=== PATIENT | female | born 1955 | race African-American/Black ===

== ENCOUNTER 2018-05-29 05:17 | Inpatient (IN) ==
[2018-05-22 13:19] LABS: HEMATOCRIT 37.2 % (37.0-47.0); HEMOGLOBIN 12.6 g/dL (12.0-16.0); MCH 30.7 PG (27-31); MCHC 33.9 g/dL (33-37); MCV 90.5 FL (81-99); MPV 12.1 FL (7.4-10.4); RBC 4.11 XMIL (4.2-5.4); RDW 15.8 % (11.5-14.5); WBC 13.63 X1000 (4.8-10.8)
--- NOTE | 2018-05-22 13:43 | EKG Report ---
Test Performed on : 05/22/2018 1:03:47 PM Test Reason : PAT Blood Pressure : / mmHG Vent. Rate : 064 BPM Atrial Rate : 064 BPM P-R Int : 116 ms QRS Dur : 086 ms QT Int : 416 ms P-R-T Axes : 059 042 038 degrees QTc Int : 429 ms Normal sinus rhythm. Nonspecific T wave abnormality Abnormal ECG No previous ECGs available Confirmed by Jamar YOO, Wilner ([id number]) on 05/23/2018 8:42:44 AM
[2018-05-22 13:48] LABS: CALCIUM 9.7 mg/dL (8.8-10.2); CREATININE 1.3 mg/dL (0.5-0.9); POTASSIUM 3.3 mmol/L (3.5-5.1)
[2018-05-29] MEDS ORDERED: LR 1,000 ML ONE ×3 (05:35→13:26)
[2018-05-29] MEDS ORDERED: KEFZOL 2 GM/D5W 2 GM/50 ML IVPB ONE (05:35)
[2018-05-29] MEDS ORDERED: DIPRIVAN 1% ONE (06:24)
[2018-05-29] MEDS ORDERED: SENSORCAINE-MPF 0.5%/EPI 1:200,000 ONE (06:30)
[2018-05-29] MEDS ORDERED: DECADRON ONE (07:14)
[2018-05-29] MEDS ORDERED: ROBINUL ONE ×2 (07:14→12:16)
[2018-05-29] MEDS ORDERED: QUELICIN (DOSE) ONE (07:14)
[2018-05-29] MEDS ORDERED: ZEMURON ONE ×2 (07:14→07:56)
[2018-05-29] MEDS ORDERED: ZOFRAN ONE ×2 (07:14→08:10)
[2018-05-29] MEDS ORDERED: XYLOCAINE-MPF 2% ONE (07:14)
[2018-05-29] MEDS ORDERED: SODIUM CHLORIDE 0.9% 10 ML ONE ×2 (07:14→12:16)
[2018-05-29] MEDS ORDERED: NEO-SYNEPHRINE ONE (07:14)
[2018-05-29] MEDS ORDERED: OFIRMEV 1000 MG/ISOTONIC SOLN 1,000 MG/100 ML BOTTLE ONE (08:10)
[2018-05-29 08:32] LABS: URINE SOURCE CATH
[2018-05-29 08:38] LABS: BILIRUBIN URINE NEGATIVE (NEGATIVE); BLOOD URINE NEGATIVE (NEGATIVE); COLOR YELLOW; GLUCOSE URINE NEGATIVE (NEGATIVE); KETONE URINE NEGATIVE (NEGATIVE); LEUKOCYTES URINE NEGATIVE (NEGATIVE); NITRITE URINE NEGATIVE (NEGATIVE); PH URINE 6.5; PROTEIN URINE 50 mg/dL (NEGATIVE); SP GRAVITY URINE 1.001; TURBIDITY URINE CLEAR (CLEAR); UROBILINOGEN URINE NORMAL (NORMAL)
[2018-05-29 08:39] LABS: UR EPITHELIAL CELLS <10 /HPF (<10); URINE BACTERIA NEGATIVE /HPF; URINE RBC <10 /HPF (<10); URINE WBC <10 /HPF (<10)
[2018-05-29] MEDS ORDERED: EPHEDRINE ONE (12:16)
[2018-05-29] MEDS ORDERED: NEOSTIGMINE ONE (12:17)
[2018-05-29] MEDS ORDERED: FENTANYL ONE (12:42)
[2018-05-29] MEDS ORDERED: NS 1,000 ML ONE (13:10)
[2018-05-29] MEDS ORDERED: PHENERGAN IV PRN (13:30)
[2018-05-29] MEDS ORDERED: SODIUM CHLORIDE 0.9% INJ PRN (13:30)
[2018-05-29] MEDS ORDERED: BENADRYL LIQUID PO PRN (13:30)
[2018-05-29] MEDS ORDERED: LABETALOL IV PRN (13:30)
[2018-05-29] MEDS ORDERED: OXY IR PO PRN (13:30)
[2018-05-29] MEDS: DILAUDID ONE ×2 (13:33→13:40)
[2018-05-29] MEDS ORDERED: KEFZOL 1 GM/D5W 1 GM/50 ML IVPB ONE (13:37)
[2018-05-29] MEDS ORDERED: KEFZOL 1 GM/D5W 1 GM/50 ML IVPB IV SCH (14:00)
[2018-05-29] MEDS ORDERED: OFIRMEV 1000 MG/ISOTONIC SOLN 1,000 MG/100 ML BOTTLE IV PRN (16:00)
[2018-05-29] MEDS: NS 1,000 ML IV SCH (16:11)
[2018-05-29] MEDS: HUMULIN R SUBQ SCH ×3 (16:12→21:43)
[2018-05-29] MEDS: MOTRIN PO SCH (16:17)
--- NOTE | 2018-05-29 19:55 | OPERATIVE NOTE ---
PROCEDURE DATE: 05/29/2018 SURGEON: Yadiel Choudhary MD. COURIER DELIVERY DRIVER SURGEON: Dr. Richards. PREOPERATIVE DIAGNOSIS: Large left renal mass. POSTOPERATIVE DIAGNOSIS: Large left renal mass. PROCEDURE PERFORMED: Laparoscopic robot-assisted attempt at left partial nephrectomy. Conversion to left radical nephrectomy. ANESTHESIA: General endotracheal. FINDINGS: A large left mid kidney to lower pole kidney renal mass (greater than 6 cm in diameter). INDICATION FOR PROCEDURE: This 62-year-old female has a large left renal mass. DESCRIPTION OF PROCEDURE: After informed consent was obtained from the patient and her receiving IV antibiotics, she was taken the main OR and placed in the supine position. General endotracheal anesthesia was achieved. She then had a 16-Somali Garcia catheter placed. Her left side was elevated to about 20 to 30 degrees with bumps. The patient's right leg was flexed to about 45 degrees. Her left leg was maintained straight. There was a pillow placed between both knees. The patient was fixed to the table with safety straps and large silk tape. The table was rotated completely to her left where she became almost horizontal to the floor. It was then rotated all the way to her right such that her left side was all the way up in flank position. The patient was then returned to the almost horizontal position and prepped and draped in the usual sterile fashion for left flank and abdominal surgery. Pneumoperitoneum was achieved by placing the Veress needle through the umbilicus. The camera port was placed about 7 cm above the umbilicus just to the left of midline. The #2 arm was placed just below the ribcage in the midclavicular line. The #1 arm was placed in the midclavicular line just below the umbilicus. The 4th arm was placed just above the left anterior superior iliac spine. The speech language pathology assistant port was placed just below the umbilicus. Before the speech language pathology assistant port could be placed, adhesions had to be taken down with the scissors laparoscopically. After the speech language pathology assistant port was placed the patient was placed with her left side up into the flank position. The robot was docked. The procedure was started by taking down more intraabdominal adhesions. The colon was reflected medially by incising the white line of Toldt. This was taken all the way up across the kidney. The colon's mesentery was very adhered to the spleen and above the spleen to the diaphragm. The colon could never be completely freed from the spleen or the diaphragm. The splenocolic ligament was incised as well as the splenorenal ligament. The colon was never completely mobilized medially off of the spleen or gastric area. After the colon was mobilized medially as far as possible, the lower pole mass was easily seen and the perirenal fat was removed over normal kidney. The lower pole area was dissected down to the psoas muscle and then medially where the gonadal vein was visualized and dissected up to the renal vein. The ureter was visualized and it was lifted up along with the kidney but the gonadal vein was kept medial. With the 4th arm, the lower pole of the kidney was raised and the pedicle was visualized. The patient had significant adhesions secondary to previous surgery and to this large mass that was distorting her anatomy. The renal vein was able to be circled with a vessel loop. However, the renal artery was immediately behind the kidney and it could not have a vessel loop placed around it. After the renal artery was somewhat dissected free such that it appeared a bulldog would be able to be placed, the proposed incision line was made over the kidney. This was seen to be over mcc up the kidney and went into the hilum of the kidney. It was decided that it would be very difficult to save the upper 1/3 of the kidney since we would have to cut into the hilar vessels to safely remove the large mid and lower pole renal mass. It was decided at that time to remove the whole kidney. The artery was dissected up and using the #2 arm, the artery was lifted up and a Hem-o-miguel clip was placed. At placing the clip, the adrenal vein was avulsed and significant bleeding occurred. The adrenal vein was finally controlled and a clip was placed on the vein and across the renal vein. A 2nd clip was placed on the artery and a 2nd clip was placed on the renal vein. A clip was placed distally on the renal vein and incised. Another clip was placed on the artery distally and it was incised. The kidney was bluntly and sharply dissected free of its bed and finally was able to be completely freed and pushed down into the true bony pelvis. The ureter was taken down between clips. The renal pelvis and artery were grasped with grasping forceps so that the kidney could be removed. Floseal was placed over the adrenal gland as well as the vascular pedicle to the left kidney. The robot was then undocked and the patient placed again horizontally. The robot trocars were removed leaving the speech language pathology assistant trocar in place with the grasping forceps through that. An incision was made below the grasping forceps through a previous scar down towards the pubic bone the length about 5 cm. This was taken down through the subcutaneous tissue with the Bovie electrocautery. The fascia at the speech language pathology assistant trocar was incised and the speech language pathology assistant trocar was able to be pulled out of the abdominal cavity and the surgeon's finger placed through that defect and the fascia was incised over the surgeon's finger to the length of the skin incision. The surgeon's hand followed the grasping forceps down to the kidney and the kidney was able to be removed. Upon inspecting the kidney outside the body, fully 2/3 of the kidney body was this large mass. The kidney was sent to Pathology. The abdominal rectus fascia was reapproximated with a running suture of #1 Maxon. The skin was reapproximated with clips. The surgeon's finger was placed through the camera trocar and a defect in the fascia could not be found. The remaining robot trocar incisions were reapproximated with clips. Island dressings were placed. She tolerated the procedure well. The estimated blood loss was 1500 mL. She did receive 2 units of packed red blood cells during the case. Her vital signs remained stable throughout. She was taken to the recovery room, extubated in good condition. The Garcia catheter will be kept overnight. cc: Yadiel Choudhary MD
[2018-05-29] MEDS: OXY IR PO PRN (21:45)
[2018-05-29] MEDS: COLACE PO SCH (21:46)
[2018-05-29] MEDS: PEPCID PO SCH (21:47)
[2018-05-29] MEDS: KEFZOL 1 GM/D5W 1 GM/50 ML IVPB IV SCH (21:47)
[2018-05-30] MEDS: HUMULIN R SUBQ SCH ×4 (02:52→20:42)
[2018-05-30] MEDS: KEFZOL 1 GM/D5W 1 GM/50 ML IVPB IV SCH (06:33)
[2018-05-30 06:51] LABS: HEMOGLOBIN 10.8 g/dL (12.0-16.0); MCH 31.7 PG (27-31); MCHC 33.8 g/dL (33-37); MCV 93.8 FL (81-99); MPV 12.5 FL (7.4-10.4); RBC 3.41 XMIL (4.2-5.4); RDW 15.8 % (11.5-14.5); WBC 15.29 X1000 (4.8-10.8)
[2018-05-30] MEDS ORDERED: PRILOSEC PO SCH (07:00)
[2018-05-30 07:42] LABS: CALCIUM 8.1 mg/dL (8.8-10.2); CREATININE 1.4 mg/dL (0.5-0.9); POTASSIUM 3.5 mmol/L (3.5-5.1)
[2018-05-30] MEDS: ASPIRIN PO SCH (08:45)
[2018-05-30] MEDS: THERA M PLUS PO SCH (08:50)
[2018-05-30] MEDS: MOTRIN PO SCH ×3 (08:50→21:48)
[2018-05-30] MEDS: AMARYL PO SCH (08:50)
[2018-05-30] MEDS: PEPCID PO SCH ×2 (08:50→21:48)
[2018-05-30] MEDS: COLACE PO SCH ×2 (08:50→21:48)
[2018-05-30] MEDS: OXY IR PO PRN (08:51)
[2018-05-30] MEDS: TRICOR PO SCH (08:51)
[2018-05-30] MEDS: PERIDEX MT SCH ×2 (08:52→21:48)
[2018-05-30] MEDS: ONGLYZA PO SCH (11:00)
[2018-05-30] MEDS: NS 1,000 ML IV SCH (11:04)
[2018-05-30] MEDS: PRINZIDE 10/12.5MG PO SCH (11:41)
[2018-05-30] MEDS ORDERED: LIPITOR PO SCH (21:00)
[2018-05-31] MEDS: NS 1,000 ML IV SCH (00:44)
[2018-05-31] MEDS: HUMULIN R SUBQ SCH (02:30)
[2018-05-31] MEDS: ONGLYZA PO SCH (08:20)
[2018-05-31] MEDS: PERIDEX MT SCH (08:20)
[2018-05-31] MEDS: TRICOR PO SCH (08:21)
[2018-05-31] MEDS: ASPIRIN PO SCH (08:21)
[2018-05-31] MEDS: PEPCID PO SCH (08:21)
[2018-05-31] MEDS: MOTRIN PO SCH (08:21)
[2018-05-31] MEDS: COLACE PO SCH (08:21)
[2018-05-31] MEDS: THERA M PLUS PO SCH (08:21)
[2018-05-31] MEDS: PRINZIDE 10/12.5MG PO SCH (08:21)
[2018-05-31] MEDS: AMARYL PO SCH (08:21)
[2018-05-31 08:47] VITALS: BP 122/55
--- NOTE | 2018-05-31 14:46 | DISCHARGE SUMMARY ---
ADMISSION DATE: 05/29/2018 DISCHARGE DATE: 05/31/2018 DISCHARGE DIAGNOSES: 1. Left renal tumor. 2. Diabetes. 3. Elevated cholesterol. 4. Hypertension. PROCEDURE PERFORMED: Laparoscopic robot-assisted left radical nephrectomy. HOSPITAL COURSE: This 62-year-old female was noted to have a left renal mass on CT scan. The mass was about 7 cm in diameter and occupied what appeared to be the entire lower pole of the kidney. During surgery, an attempt was made to do a partial nephrectomy, but it was seen that the mass went up into the upper pole past the renal hilum. At discharge, her vital signs are stable. She is afebrile. She is tolerating her diabetic diet. Her wounds are healing well. She will return to [facility] on 06 June for skin clip removal and to review pathology. She will call immediately if she has any problems. DISCHARGE MEDICATIONS: Include an aspirin a day, Lipitor, TriCor, Amaryl, Prinzide 10/12.5, Prilosec, oxycodone as needed for chronic pain, Onglyza, [place] 7.5 one by mouth every 4 hours as needed for pain dispense 12. DISCHARGE DIET: 2000 calorie ADA. cc: Yadiel Choudhary MD
== END 2018-05-31 13:24 | disposition home or self-care (01) | DRG 657 ==
LOC: 4N 05:17 → OR 05:17
PROVIDERS: ADMIT Urology; ATTEND Urology
CPT/HCPCS: 36430; 80048; 81001; 82948; 85027; 86850; 86900; 86901; 86920; 88307; 93005; 93010; 94799; A9270; J0131; J0330; J0690; J1100; J1170; J2370; J2405; J2550; J3010; J7030; J7120; P9016; S2900; XXXXX

== ENCOUNTER 2018-10-07 09:57 | Inpatient (IN) ==
[2018-10-07] MEDS ORDERED: ZOFRAN IV ONE (10:18)
[2018-10-07] MEDS ORDERED: NS 1,000 ML IV ONE ×3 (10:18→13:59)
[2018-10-07] MEDS ORDERED: MORPHINE IV ONE (10:18)
[2018-10-07 10:40] LABS: BASO# 0.02 X1000 (0.0-0.2); BASO% 0.1 % (0.0-0.8); EOS# 0.01 X1000 (0.0-0.7); EOS% 0.1 % (0.0-10.0); HEMATOCRIT 41.7 % (37.0-47.0); HEMOGLOBIN 13.5 g/dL (12.0-16.0); IMM GRAN# 0.05 X1000 (0.0-0.04); IMM GRAN% 0.3 % (0.0-0.5); LYMPH# 3.04 X1000 (1.2-3.4); MCH 28.7 PG (27-31); MCHC 32.4 g/dL (33-37); MCV 88.5 FL (81-99); MONO# 1.47 X1000 (0.11-0.59); MONO% 9.2 % (1.7-9.3); MPV 12.2 FL (7.4-10.4); NEUT# 11.44 X1000 (1.4-6.5); NEUT% 71.3 % (42.2-75.2); PLT 347 X1000 (130-400); RBC 4.71 XMIL (4.2-5.4); RDW 15.4 % (11.5-14.5); WBC 16.03 X1000 (4.8-10.8)
[2018-10-07 10:54] LABS: ACETONE SERUM NEGATIVE (NEGATIVE)
[2018-10-07 11:03] LABS: AGAP 16; ALBUMIN 4.3 g/dL (3.5-5.0); ALKALINE PHOSPHATASE 52 U/L (32-104); BUN 49 mg/dL (8-22); CALCIUM 9.5 mg/dL (8.8-10.2); CHLORIDE 102 mmol/L (98-107); COSMO 297; CREATININE 2.3 mg/dL (0.5-0.9); ESTIMATED GFR 21; GLUCOSE 177 mg/dL (70-104); GOT 18 U/L (10-30); GPT 18 U/L (10-36); LIPASE 29 U/L (13-60); POTASSIUM 4.8 mmol/L (3.5-5.1); SODIUM 140 mmol/L (136-145); TCO2 23 mmol/L (25-35); TOTAL PROTEIN 7.1 g/dL (6.3-8.3)
--- NOTE | 2018-10-07 13:09 | Diag Imaging Result Doc PS360 ---
EXAM: CT ABDOMEN/PELVIS W/O CONTRAST INDICATION: abd pain, acute kidney injury TECHNIQUE: This exam was performed using automated exposure control, adjustment of mA or kV according to patient size, and/or use of iterative reconstruction technique. COMPARISON: 05/05/2018 FINDINGS: There has been a prior cholecystectomy. The liver, spleen, and pancreas are unremarkable. The small adrenal nodules that probably represent adenomas are stable. There has been an interval left nephrectomy. There is mild stranding in and around the left renal fossa that is probably postsurgical. The right kidney is unremarkable. The urinary bladder appears normal as imaged. There has been a prior hysterectomy. The appendix is normal. There are mildly distended loops of small bowel throughout the abdomen but more prominent on the left that contain air-fluid levels. The distal small bowel is decompressed. These loops of small bowel are nonspecific. Consider ileus versus partial bowel obstruction. The remainder of the GI tract is unremarkable. There is trace free fluid in the pelvis. There are postsurgical changes at the lower abdominal wall near the midline. There is no evidence of acute osseous abnormality. IMPRESSION: 1.Interval left nephrectomy with mild stranding in the left renal fossa that is probably postsurgical. 2.Several mildly distended loops of small bowel containing air-fluid levels. Consider ileus versus partial bowel obstruction. 3.Other incidental/nonacute findings detailed above. Electronically signed by Gerson Welsh 10/07/2018 1:06 PM
--- NOTE | 2018-10-07 13:28 | EKG Report ---
Test Performed on : 10/07/2018 10:41:26 AM Test Reason : abd pain Blood Pressure : / mmHG Vent. Rate : 068 BPM Atrial Rate : 068 BPM P-R Int : 096 ms QRS Dur : 086 ms QT Int : 388 ms P-R-T Axes : 028 042 056 degrees QTc Int : 412 ms Sinus rhythm. with short ID Otherwise normal ECG When compared with ECG of 22-MAY-2018 13:03, T wave inversion no longer evident in Inferior leads T wave inversion no longer evident in Anterior leads Unconfirmed Result
[2018-10-07 13:48] LABS: BILIRUBIN URINE NEGATIVE (NEGATIVE); BLOOD URINE NEGATIVE (NEGATIVE); CLARITY CLEAR (CLEAR); COLOR YELLOW; GLUCOSE URINE NEGATIVE (NEGATIVE); KETONE URINE NEGATIVE (NEGATIVE); LEUKOCYTES URINE 2+ (NEGATIVE); NITRITE URINE NEGATIVE (NEGATIVE); PH URINE 6.5; PROTEIN URINE 1+(30 mg/dL) mg/dL (NEGATIVE); URINE SOURCE CLEAN CATCH; UROBILINOGEN URINE NORMAL
[2018-10-07 13:54] LABS: URINE EPITHELIAL CELLS <10 /HPF (<10)
[2018-10-07] MEDS ORDERED: MAXIPIME 1 GM in NS 50 ML IV ONE (13:58)
[2018-10-07] MEDS ORDERED: FLAGYL 500 MG/NS 500 MG/100 ML IVPB IV ONE (13:58)
[2018-10-07] MEDS ORDERED: TYLENOL PO PRN (13:59)
--- NOTE | 2018-10-07 13:59 | PROVIDER DOCUMENTATION ---
This chart was entered by Nicole Valdez Scribe, acting as scribe for Galdino Garcia MD. HPI-Abdominal Pain/GI Problem - General Chief Complaint: Abdominal Pain Stated Complaint: ABD PAIN Time Seen by Provider: 10/07/18 10:01 Source: patient Allergies/Adverse Reactions: Patient Allergies Allergy/AdvReac Type Severity Reaction Status Date / Time clarithromycin [From Biaxin] Allergy ITCHING Verified 05/29/18 05:31 Penicillins Allergy ITCHING Verified 05/29/18 05:31 Home Medications: Home Medication List Medication Instructions Recorded Confirmed Last Taken Type ATORVAstatin [Lipitor] 80 mg PO DAILY 05/22/18 10/07/18 05/28/18 15:00 History Aspirin 81 mg PO DAILY 05/22/18 10/07/18 05/12/18 History Fenofibrate [Tricor] 145 mg PO DAILY 05/22/18 10/07/18 05/28/18 15:00 History Ibuprofen 800 mg PO TID 05/22/18 10/07/18 05/26/18 History Lisinopril/Hydrochlorothiazide 1 ea PO DAILY 05/22/18 10/07/18 05/28/18 15:00 History [Lisinopril-Hctz 20-25 mg Tab] Multivitamin [Daily Vitamin] 1 ea PO DAILY 05/22/18 10/07/18 05/28/18 15:00 History Omeprazole 40 mg PO DAILY 05/22/18 10/07/18 05/28/18 15:00 History Saxagliptin [Onglyza] 5 mg PO DAILY 05/22/18 10/07/18 05/28/18 15:00 History - History of Present Illness-ABD Nature of Presenting Problems: Patient is a 63 year old female who presents with upper abdominal pain. States nausea, vomiting, fever and chills with abdominal pain. Reports nausea and vomiting started 3 days ago and abdominal pain came after. Denies diarrhea, urinary symptoms, and blood in emesis. Reports having her left kidney removed due to having a mass on the kidney. Abdominal Pain Onset Location: reports: RUQ, LUQ, epigastric Pain Radiation: reports: no radiation Quality of Pain: reports: aching Severity in ED: reports: mild Onset/Duration: reports: 3 days ago Timing: reports: still present Activities at Onset: reports: light activity Associated Symptoms: reports: fever/chills (fever and chills), nausea, vomiting Last BM: this morning Rectal Bleeding: reports: none Rectal Pain: reports: none Emesis Description: reports: none Bruising or Bleeding Gums?: No Similar Symptoms Previously?: Yes Recently seen or treated by another doctor?: No Review of Systems - Adult - REVIEW OF SYSTEMS - ADULT Constitutional: reports: see HPI, chills, fever. denies: fatique Eyes: reports: no symptoms reported Ears, Nose, Mouth & Throat: reports: no symptoms reported Cardiovascular: reports: no symptoms reported Respiratory: reports: no symptoms reported Gastrointestinal: reports: see HPI, abdominal pain, nausea, vomiting. denies: hematemesis, diarrhea, rectal bleeding Genitourinary: reports: no symptoms reported. denies: dysuria, flank pain, hematuria Musculoskeletal: reports: no symptoms reported Integumentary: reports: no symptoms reported Neurological: reports: no symptoms reported Psychiatric: reports: no symptoms reported Endocrine: reports: no symptoms reported Hematologic/Lymphatic: reports: no symptoms reported Allergic/Immunologic: reports: no symptoms reported All Other Systems: Reviewed and Negative Past History - Adult - PAST MEDICAL HISTORY-ADULT Review of Records: reports: Old Records Reviewed, Social history reviewed & non- contributory. Major Childhood Illnesses: reports: denies history Cardiovascular: reports: HTN Respiratory: reports: denies history Gastrointestinal: reports: denies history Obstetrical/Gynecological: reports: denies history Genitourinary: reports: other (removal of left kidney) Musculoskeletal: reports: denies history Neurological: reports: denies history Endocrine/Immune: reports: Diabetes Other Conditions: reports: denies history - PRIOR SURGERIES/PROCEDURES Surgical/Procedure History: reports: reviewed, not pertinent, appendectomy, cholecystectomy, hysterectomy, - IMMUNIZATION STATUS Childhood Immunizations: See Nurse Assessment Flu Vaccine: See Nurse Assessment - FAMILY HISTORY Family History: reviewed, not pertinent - SOCIAL HISTORY Smoking: cigarettes (former) Substance Use: denies Living Situation: family Physical Exam-General - PHYSICAL EXAM-ADULT Initial Vital Signs Reviewed: Yes - CONSTITUTIONAL General Appearance: alert, no apparent distress. negative: lethargic - HEAD, EARS, NOSE, MOUTH & THROAT HENMT: normocephalic/atraumatic, other (dry mucous membranes). negative: angioedema - RESPIRATORY Respiratory: chest non-tender, lungs clear, normal breath sounds. negative: crackles, rhonchi - CARDIOVASCULAR Cardiovascular: normal peripheral pulses, regular rate, rhythm. negative: tachycardia - GASTROINTESTINAL (ABDOMEN) Abdominal Exam: normal bowel sounds, soft, tenderness (LUQ and epigastric). negative: distended, guarding - MUSCULOSKELETAL Back Exam: CVA tenderness (left). negative: ecchymosis, vertebral tenderness Extremity: normal inspection. negative: deformity, erythema, swelling - SKIN Integumentary: normal color, normal turgor, warm/dry. negative: diaphoresis, ecchymosis, rash - NEUROLOGIC Neurologic: grossly normal. negative: aphasia, facial droop - PSYCHIATRIC Psych/Mental Status: normal mood/affect, oriented x 3. negative: anxious Progress - PLAN OF CARE/RESULTS Progress/Plan/Lab Results: Vital Signs - 8 hr 10/07/18 09:59 Temperature 97.9 F Pulse Rate 85 Respiratory Rate 20 Blood Pressure 103/69 O2 Sat by Pulse Oximetry 100 Laboratory Results - last 24 hr 10/07/18 10:08 POC Glucose 165 H D Orders Category Date Time Status FSBS [Finger Stick Blood Sugar (ED)] DIRECTED Care 10/07/18 10:06 Active Nursing- Obtain EKG once Care 10/07/18 10:08 Active Saline Loc DIRECTED Care 10/07/18 10:04 Active NPO Diet 10/07/18 10:04 Active ACETONE SERUM [CHEM] Stat Lab 10/07/18 10:07 Uncollected AMYLASE [CHEM] Stat Lab 10/07/18 10:04 Ordered CBC WITH ELECTRONIC DIFF [HEME] Stat Lab 10/07/18 10:04 Ordered COMPREHENSIVE METABOLIC PANEL [CHEM] Stat Lab 10/07/18 10:04 Uncollected LACTATE, PLASMA [CHEM] Stat Lab 10/07/18 10:07 Uncollected LIPASE [CHEM] Stat Lab 10/07/18 10:04 Uncollected TROPONIN T Stat Lab 10/07/18 10:[address] W/POSS RFLX CULT [URINALYSIS] Stat Lab 10/07/18 10:04 Uncollected Abd Pain/Abn Bleeding Stat Oth 10/07/18 10:03 Ordered EKG [EKG] Stat Ther 10/07/18 10:08 Ordered Result Diagrams: 10/07/18 10:30 10/07/18 10:33 - REASSESSMENT Reassessment #1 Time Reassessed: 13:36 Status: improving (given 2L of NS, not septic. Acute kidney injury. Old chart and labs reviewed, creatinine has increased from 1.5 to 2.3 in the last 2 months.) - EKG 1 Time of EKG reading by physician:: 10:41 EKG Read and Signed by:: Galdino Garcia EKG Interpretation (*Must complete 3 of following elements*): Abnormal Rate: 68 Rhythm: sinus rhythm with short CA Zimmerman: normal CA Interval: normal Comments: otherwise normal ECG - CT/MRI 1 CT Study: Abdomen, Pelvis Impression: See EMR Report ( EXAM: CT ABDOMEN/PELVIS W/O CONTRAST INDICATION: abd pain, acute kidney injury TECHNIQUE: This exam was performed using automated exposure control, adjustment of mA or kV according to patient size, and/or use of iterative reconstruction technique. COMPARISON: 05/05/2018 FINDINGS: There has been a prior cholecystectomy. The liver, spleen, and pancreas are unremarkable. The small adrenal nodules that probably represent adenomas are stable. There has been an interval left nephrectomy. There is mild stranding in and around the left renal fossa that is probably postsurgical. The right kidney is unremarkable. The urinary bladder appears normal as imaged. There has been a prior hysterectomy. The appendix is normal. There are mildly distended loops of small bowel throughout the abdomen but more prominent on the left that contain air-fluid levels. The distal small bowel is decompressed. These loops of small bowel are nonspecific. Consider ileus versus partial bowel obstruction. The remainder of the GI tract is unremarkable. There is trace free fluid in the pelvis. There are postsurgical changes at the lower abdominal wall near the midline. There is no evidence of acute osseous abnormality. IMPRES XANDER: 1.Interval left nephrectomy with mild stranding in the left renal fossa that is probably postsurgical. 2.Several mildly distended loops of small bowel containing air-fluid levels. Consider ileus versus partial bowel obstruction. 3.Other incidental/nonacute findings detailed above. Electronically signed by Gerson Welsh 10/07/2018 1:06 PM 10/07/18 1306 Interpreting Physician: Gerson Welsh MD Dictated Date/Time: 10/07/18 2324 cc: Galdino Garcia MD; Jorge Luis Willett MD) - CONSULTS/PCP/HOSPITALIST Notification #1 *Consult/PCP/Hospitalist*: chris Hawk paged at [phone] Time Discussed: 13:56 Reason/Comments: Dr. Garcia consulted with Dr. Hawk about patient Consult Disposition: Admit Departure - Departure Date of Disposition Decision: 10/07/18 Time of Disposition Decision: 13:57 DIAGNOSIS: Acute kidney injury, Partial obstruction of small intestine, Type 2 diabetes mellitus with hyperglycemia, with long-term current use of insulin Abdominal pain Qualifiers: Abdominal location: upper abdomen, unspecified Qualified Code(s): R10.10 - Upper abdominal pain, unspecified Disposition: ADMITTED INPATIENT 09 Certified Medical Emergency: Emergent Condition: Fair Referrals and Follow-Ups: Jorge Luis Willett MD [Primary Care Provider] - - Critical Care Note This patient required my direct & personal management of CC.: No Attestation - Physician/ RAMY Attestation Patient care was provided by Advanced Practice Provider:: No The physician spent face to face time with patient:: Yes Advanced Practice Provider documentation review:: Supervising physician onsite and consulted in the evaluation and care of this patient. The physician did have a face to face encounter with the patient. This chart was documented by the indicated scribe, (Nicole Valdez Scribe) and accurately reflects the services I performed and decisions made by me, Galdino Garcia MD, as attested by the provider's signature.
[2018-10-07] MEDS ORDERED: OFIRMEV 1000 MG/ISOTONIC SOLN 1,000 MG/100 ML BOTTLE IV PRN (15:28)
[2018-10-07] MEDS ORDERED: SODIUM CHLORIDE 0.9% INJ SCH (16:00)
[2018-10-07 16:03] LABS: BILIRUBIN URINE NEGATIVE (NEGATIVE); BLOOD URINE NEGATIVE (NEGATIVE); CLARITY CLEAR (CLEAR); COLOR YELLOW; GLUCOSE URINE NEGATIVE (NEGATIVE); KETONE URINE NEGATIVE (NEGATIVE); LEUKOCYTES URINE NEGATIVE (NEGATIVE); NITRITE URINE NEGATIVE (NEGATIVE); PH URINE 6.5; PROTEIN URINE NEGATIVE (NEGATIVE); SP GRAVITY URINE 1.015; UROBILINOGEN URINE NORMAL
[2018-10-07 16:08] LABS: URINE BACTERIA 1+ /HFP; URINE CAST NONE SEEN /LPF; URINE CRYSTAL NONE SEEN /HPF; URINE EPITHELIAL CELLS <10 /HPF (<10); URINE WBC <10 /HPF (<10); URINE YEAST NONE SEEN /HPF
[2018-10-07 16:09] LABS: URINE SOURCE CATH
--- NOTE | 2018-10-07 16:18 | HISTORY AND PHYSICAL ---
PRIMARY CARE PROVIDER: Dr. Jorge Luis Willett. PRIMARY UROLOGIST: Dr. Choudhary. CHIEF COMPLAINT: Abdominal pain, nausea, vomiting. HISTORY OF PRESENT ILLNESS: Miss Patricia Ruelas is a 63-year-old female with a medical history of left renal cell carcinoma now status post left nephrectomy in May of 2018 without any need for follow-up interventions. Also with history of hypertension, diabetes mellitus type 2, hyperlipidemia, and GERD. She states that she went to [employer] on Tuesday night, ate chicken salad, and brought some home with her. That morning she made herself a chicken salad sandwich and essentially vomited all day long, She felt as if she had food poisoning, but there was no associated diarrhea. The next morning on Tuesday morning she ate 1 bowl of oatmeal. No vomiting all day, but then started throwing up again last night. So this morning she still felt the same and came to the emergency department at [facility]. She has in the last 24 hours been having fever and chills along with her nausea and vomiting. The bowel movements she states have been solid and she has had a normal bowel movement every single day. There is no change in her bowel production. The imaging that was obtained was an abdominal pelvic CT which showed several mildly-distended loops of small bowel containing air-fluid levels which could be considered as ileus versus partial bowel obstruction. So she will be admitted with clear liquids, IV fluids, and some IV antibiotics in case there is a bit of diverticulitis or colitis involved. PAST MEDICAL HISTORY: 1. Left renal cell carcinoma May of 2018 status post left nephrectomy by Dr. Choudhary. 2. Hypertension. 3. Diabetes mellitus type 2. States her last hemoglobin A1c was 6.1. 4. Hyperlipidemia. 5. GERD. 6. Chronic back pain from arthritis and bulging disk, but does not take narcotics. She takes ibuprofen 800 mg every day. She was highly educated on the risk of kidney failure with chronic ibuprofen use, specifically due to the fact she only has 1 kidney. 7. Chronic kidney disease stage 2 to 3. PAST SURGICAL HISTORY: 1. Left nephrectomy May of 2018. 2. Appendectomy. 3. Cholecystectomy. 4. Hysterectomy. 5. section. SOCIAL HISTORY: Quit smoking in May of 2018 right before her nephrectomy, but prior to that was a 1 pack per day smoker since the age of 17. Denies alcohol or illicit drug use. 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 FAMILY HISTORY: Mother had a myocardial infarction in her 60s. She also had diabetes and unknown type of cancer. Father also had an unknown type of cancer. ALLERGIES: Biaxin or clarithromycin and penicillins. HOME MEDICATIONS: 1. Aspirin 81 mg p.o. daily. 2. Multivitamin 1 tablet p.o. daily. 3. Ibuprofen 800 mg p.o. t.i.d., but she states she only takes it once a day. 4. Lipitor 80 mg p.o. daily. 5. Lisinopril/hydrochlorothiazide once daily. 6. Omeprazole 40 mg p.o. daily. 7. Saxagliptin 5 mg p.o. daily. 8. Fenofibrate 145 mg p.o. daily. REVIEW OF SYSTEMS: Fourteen-point review of systems are complete and all were negative except for those mentioned above in HPI. PHYSICAL EXAMINATION: VITAL SIGNS: Temperature 97.9 degrees, heart rate 85, respiratory rate 20, blood pressure 103/69, and O2 saturation 100% on room air. GENERAL: Miss Patricia Munoz is a 63-year-old female. She is in no acute distress. She is able answer to questions appropriately. HEENT: Atraumatic, normocephalic. Pupils equal, round, and reactive to light. Extraocular movements intact. Mucous membranes are dry. NECK: Trachea midline. CARDIOVASCULAR: S1, S2. Regular rate and rhythm. No rubs, gallops, or murmurs. Plus 2 dorsalis and radial pulses. Negative JVD or carotid bruits. PULMONARY: Clear to auscultate bilateral breath sounds. No accessory muscle use or work of breathing noted. GASTROINTESTINAL: Soft. Tender in all 4 quadrants. Nondistended. Positive bowel sounds x4. EXTREMITIES: Moves all extremities equally. Full range of motion. NEUROLOGIC: A and O x3. Follows commands. Sensory is intact. SKIN: Warm, dry, intact. LABORATORY DATA: White blood cells 16,000, hemoglobin 13, hematocrit 41, platelet count 347,000. Sodium 140, potassium 4.8, BUN 49, creatinine is 2.3, glucose 177, calcium 9.5, bilirubin 0.30, AST 18, ALT 18. Troponin less than 0.01. Albumin 4.3, amylase 74, lipase 29, lactate 1.3. Urinalysis 1+ protein, 2+ white blood cells, 10 to 20 microscopic white blood cells, negative acetone. IMAGING: Abdominal and pelvic CT: Interval left nephrectomy with mild stranding in the left renal fossa that us probably due to postsurgical changes. Several mildly- distended loops of small bowel containing air-fluid levels. Consider ileus versus partial bowel obstruction. EKG: Sinus rhythm with a short P-R, QTc is 412, ventricular rate is 68. ASSESSMENT AND PLAN: 1. Ileus versus partial small bowel obstruction. Signs and symptoms are more consistent with ileus. She is still having bowel movements, but she will have antiemetics, we will keep her on clear liquids, and she will have IV fluid hydration. We can repeat an abdominal x-ray in the morning. 2. Leukocytosis with signs and symptoms of fever and chills. Lactate is normal. Blood cultures have been ordered. Urinalysis: No obvious infection. Chest x-ray will be ordered. It has not been ordered yet. It is probably gastrointestinal related, and she has been initiated on cefepime and Flagyl, but we will probably continue her on Flagyl and Levaquin. 3. Acute kidney injury on chronic kidney disease stage III with singular kidney. She had a left nephrectomy in May. She had also been on ibuprofen 800 mg every single day. She was informed that she would need to change to some other form of pain control for her arthritis. She is going to receive IV fluid hydration. We will recheck her kidney function in the morning. If not improved, we will do some urine studies and a renal ultrasound if needed. 4. Hypertension. I am going to hold the antihypertensives for now. 5. Diabetes mellitus type 2. We will do pattern blood glucoses and sliding scale insulin. 6. Gastroesophageal reflux disease. Continue proton pump inhibitor. 7. Hyperlipidemia. Continue the fenofibrate and a statin. 8. Arthritis and bulging disk that causes chronic back pain. We will do IV Tylenol if she needs it. 9. Deep venous thrombosis prophylaxis. SCDs. Dictated by DAVIN Giles for Roger Hawk MD cc: DAVIN Giles MD [facility]
[2018-10-07] MEDS: HUMULIN R (PARKWAY) SUBQ SCH ×2 (16:49→21:03)
[2018-10-07] MEDS: LEVAQUIN 500 MG in NS 100 ML IV SCH (16:51)
[2018-10-07] MEDS: PROTONIX IV SCH (17:56)
--- NOTE | 2018-10-07 19:41 | Diag Imaging Result Doc PS360 ---
EXAM: CHEST-2 VIEWS INDICATION: leukocytosis; r/o pna TECHNIQUE: 2 views COMPARISON: 06/02/2018 FINDINGS: The lungs are grossly clear. There is no discrete pleural fluid collection or pneumothorax. The cardiomediastinal silhouette and central vasculature are grossly unremarkable. IMPRESSION: No evidence of acute pathology by plain radiograph. Electronically signed by Gerson Welsh 10/07/2018 7:39 PM
[2018-10-07] MEDS: FLAGYL 500 MG/NS 500 MG/100 ML IVPB IV SCH (22:03)
[2018-10-07] MEDS: MORPHINE IV PRN (22:11)
[2018-10-07] MEDS: ZOFRAN IV PRN (22:11)
[2018-10-08] MEDS: FLAGYL 500 MG/NS 500 MG/100 ML IVPB IV SCH ×3 (05:16→21:35)
[2018-10-08] MEDS: HUMULIN R (PARKWAY) SUBQ SCH ×4 (06:33→21:41)
[2018-10-08 06:55] LABS: BASO# 0.02 X1000 (0.0-0.2); BASO% 0.2 % (0.0-0.8); EOS# 0.15 X1000 (0.0-0.7); EOS% 1.3 % (0.0-10.0); HEMATOCRIT 36.6 % (37.0-47.0); HEMOGLOBIN 11.3 g/dL (12.0-16.0); IMM GRAN# 0.03 X1000 (0.0-0.04); IMM GRAN% 0.3 % (0.0-0.5); LYMPH# 4.02 X1000 (1.2-3.4); LYMPH% 34.3 % (20.5-51.1); MCHC 30.9 g/dL (33-37); MCV 90.8 FL (81-99); MONO# 1.53 X1000 (0.11-0.59); MPV 12.5 FL (7.4-10.4); NEUT# 5.98 X1000 (1.4-6.5); NEUT% 50.9 % (42.2-75.2); PLT 253 X1000 (130-400); RBC 4.03 XMIL (4.2-5.4); RDW 15.3 % (11.5-14.5); WBC 11.73 X1000 (4.8-10.8)
[2018-10-08 07:05] LABS: ALBUMIN 3.3 g/dL (3.5-5.0); CALCIUM 8.8 mg/dL (8.8-10.2); CREATININE 1.6 mg/dL (0.5-0.9); TOTAL BILIRUBIN 0.3 mg/dL (0.20-1.00); TOTAL PROTEIN 5.6 g/dL (6.3-8.3)
--- NOTE | 2018-10-08 07:48 | Diag Imaging Result Doc PS360 ---
EXAM: ABDOMEN FLAT/UPRIGHT INDICATION: ileus/ partial sbo TECHNIQUE: 2 views COMPARISON: None. FINDINGS: There are a few mildly gas-distended loops of small bowel in the mid and upper abdomen. This was also seen on recent CT. There is gas and patchy stool in the colon. The colon does not appear to be distended. No large volume free abdominal gas is identified. There is no evidence of organomegaly. IMPRESSION: A few mildly gas-distended loops of small bowel as described. Electronically signed by Gerson Welsh 10/08/2018 7:46 AM
[2018-10-08] MEDS: PROTONIX IV SCH (16:37)
[2018-10-08] MEDS: LEVAQUIN 500 MG in NS 100 ML IV SCH (16:40)
--- NOTE | 2018-10-08 18:10 | PROGRESS NOTE ---
DATE: 10/08/2018 SUBJECTIVE: Patient reports had bowel movements yesterday. She is passing gases today. She ate clear liquid diet, and she tolerated it very well. OBJECTIVE: Vital Signs: Temperature 98.2 degrees, heart rate 61, respiratory rate 20, blood pressure 107/41. O2 saturation 100% on room air. General: This is a 63-year-old female lying in bed, in no acute distress. Cardiovascular: S1, S2 heard. No murmurs, gallops, or rubs. Regular rate and rhythm. Respiratory: Clear bilaterally to auscultation. No work of breathing or using accessory muscles. Abdomen: Soft. Nontender to palpation. Bowel sounds present. No organomegaly. Extremities: No clubbing, cyanosis, or edema. Peripheral pulses present in both legs. Neurological: Patient alert, oriented x3. Moves 4 extremities. LABORATORY DATA: Reviewed. ASSESSMENT AND PLAN: 1. Ileus. I think this is what this patient has. I do not think she has small bowel obstruction because stated that she had a bowel movement, and also she is passing gases. In any case, I think at this point, we will advance her diet to GI soft diet, and if she is tolerating that tomorrow, I think she can be discharged. She has been started on Levaquin and Flagyl. Leukocytosis which was present admission is much better today. We are going to check CBC and CMP tomorrow. We will go from there. 2. Acute kidney injury. Actually that condition is getting much better. It was 2.3 yesterday and 1.6 today for creatinine. Will continue to monitor. 3. Diabetes mellitus type 2. We will continue with sliding scale insulin and Accu-Chek before meals and also at bedtime. 4. Gastroesophageal reflux disease. We will continue with PPI. 5. Disposition. If this patient is tolerating diet tomorrow, passing gases or having bowel movements, I think she can be discharged tomorrow. cc: Fausto Ragsdale MD
[2018-10-08] MEDS: MORPHINE IV PRN (21:35)
[2018-10-08] MEDS: ZOFRAN IV PRN (21:36)
[2018-10-09] MEDS: FLAGYL 500 MG/NS 500 MG/100 ML IVPB IV SCH ×3 (05:53→16:11)
[2018-10-09 06:25] LABS: BASO# 0.02 X1000 (0.0-0.2); BASO% 0.2 % (0.0-0.8); EOS# 0.12 X1000 (0.0-0.7); EOS% 1.2 % (0.0-10.0); HEMATOCRIT 33.3 % (37.0-47.0); HEMOGLOBIN 10.4 g/dL (12.0-16.0); IMM GRAN# 0.03 X1000 (0.0-0.04); IMM GRAN% 0.3 % (0.0-0.5); LYMPH# 3.59 X1000 (1.2-3.4); LYMPH% 36.9 % (20.5-51.1); MCH 28.1 PG (27-31); MCHC 31.2 g/dL (33-37); MONO# 1.04 X1000 (0.11-0.59); MONO% 10.7 % (1.7-9.3); MPV 12.1 FL (7.4-10.4); NEUT# 4.93 X1000 (1.4-6.5); NEUT% 50.7 % (42.2-75.2); PLT 255 X1000 (130-400); RDW 15.2 % (11.5-14.5); WBC 9.73 X1000 (4.8-10.8)
[2018-10-09 06:46] LABS: POTASSIUM 4.1 mmol/L (3.5-5.1)
[2018-10-09 06:47] LABS: ALBUMIN 3.3 g/dL (3.5-5.0); CALCIUM 8.6 mg/dL (8.8-10.2); CREATININE 1.5 mg/dL (0.5-0.9); TOTAL BILIRUBIN 0.2 mg/dL (0.20-1.00); TOTAL PROTEIN 5.6 g/dL (6.3-8.3)
[2018-10-09] MEDS: HUMULIN R (PARKWAY) SUBQ SCH ×4 (06:57→23:18)
--- NOTE | 2018-10-09 09:31 | HISTORY AND PHYSICAL ---
ADDENDUM: I saw the patient face to face and fully agree with the assessment and plan of nurse practitioner, Mi Evans. This is a 63-year-old female who has been here for abdominal pain. She has leukocytosis with white blood cell count of 16.03 and also has elevated BUN and creatinine of 49 and 2.2, respectively. She is a known diabetic and has 10 to 20 white blood cells per high-power field on her urinalysis. Her CT scan of the abdomen showed a possible small bowel obstruction. She is going to be admitted to the med-surg floor and we are going to give her IV fluids along with broad- spectrum antibiotics. Supportive care, including care of her diabetes, will also be provided to her. Further recommendations will be given as per hospital course. cc: Roger Hawk MD
--- NOTE | 2018-10-09 14:18 | Diag Imaging Result Doc PS360 ---
EXAM: ABDOMEN FLAT/UPRIGHT INDICATION: sbo vs ileus TECHNIQUE: 2 views COMPARISON: 10/08/2018 FINDINGS: There is persistent mild gaseous distention of small bowel. It is similar to the previous study but may be slightly worse. No free abdominal gas is identified. The abdomen is stable, otherwise. IMPRESSION: Stable to marginal worsening of mild gaseous distention of small bowel. Electronically signed by Gerson Welsh 10/09/2018 2:16 PM
[2018-10-09] MEDS: PROTONIX IV SCH (16:11)
[2018-10-09] MEDS ORDERED: LEVAQUIN 500 MG/D5W 500 MG/100 ML IVPB IV SCH (17:00)
[2018-10-09] MEDS: LEVAQUIN PO SCH (18:03)
[2018-10-09] MEDS: FLAGYL PO SCH (18:03)
--- NOTE | 2018-10-09 19:11 | PROGRESS NOTE ---
DATE: 10/09/2018 SUBJECTIVE: The patient reports not having had any bowel movements yesterday and today. She is passing some gas. She is eating GI soft diet. She tolerated it well. OBJECTIVE: Vital Signs: Temperature 98.2 degrees, heart rate 63, respiratory rate 20, blood pressure 144/51, O2 saturation 100% on room air. General: This is a 63-year-old female lying in bed, in no acute distress. Cardiovascular: S1, S2 heard. No murmurs, gallops, or rubs. Regular rate and rhythm. Respiratory: Clear bilaterally to auscultation. No work of breathing or using accessory muscles. Abdomen: Soft. Nontender to palpation. Bowel sounds distant but present. No organomegaly noted. Extremities: No clubbing, cyanosis, or edema. Peripheral pulses present in both legs. Neurological: Patient alert and oriented x3. Moves all 4 extremities. ASSESSMENT AND PLAN: 1. Ileus. At beginning we told that this patient may have some degree of small- bowel obstruction. The x-ray from today actually showed some stable to marginal worsening of mild gaseous distension of the small bowel. In that regard, I prefer to keep this patient 1 more day under observation and see how she does. See if with all the food that she is taking today she is able to have a normal bowel movement tomorrow. If that happens, she can be discharged. Of course, we are going to repeat an x-ray tomorrow, and we will go from there. 2. Acute kidney injury, resolved. She was on intravenous fluids, but she is not anymore. 3. Diabetes mellitus type 2. We will continue with sliding scale insulin. Accu-Chek before meals and also at bedtime. 4. Gastroesophageal reflux disease. We will continue with PPI. 5. Disposition. I think if this patient starts having bowel movements or passing gases and the x- ray of her abdomen is better she can be discharged. cc: Fausto Ragsdale MD MTDD
[2018-10-10] MEDS: FLAGYL PO SCH ×4 (03:24→17:11)
[2018-10-10] MEDS: HUMULIN R (PARKWAY) SUBQ SCH ×4 (06:15→22:39)
[2018-10-10 07:15] LABS: BASO# 0.02 X1000 (0.0-0.2); BASO% 0.2 % (0.0-0.8); EOS# 0.18 X1000 (0.0-0.7); EOS% 1.7 % (0.0-10.0); HEMATOCRIT 35.7 % (37.0-47.0); HEMOGLOBIN 11.1 g/dL (12.0-16.0); IMM GRAN# 0.04 X1000 (0.0-0.04); IMM GRAN% 0.4 % (0.0-0.5); LYMPH# 3.77 X1000 (1.2-3.4); MCH 27.5 PG (27-31); MCHC 31.1 g/dL (33-37); MCV 88.4 FL (81-99); MONO# 1.13 X1000 (0.11-0.59); MONO% 10.5 % (1.7-9.3); MPV 12.9 FL (7.4-10.4); NEUT# 5.63 X1000 (1.4-6.5); NEUT% 52.2 % (42.2-75.2); PLT 263 X1000 (130-400); RBC 4.04 XMIL (4.2-5.4); WBC 10.77 X1000 (4.8-10.8)
[2018-10-10 07:25] LABS: AGAP 11; ALBUMIN 3.6 g/dL (3.5-5.0); ALKALINE PHOSPHATASE 42 U/L (32-104); BUN 25 mg/dL (8-22); CALCIUM 9.2 mg/dL (8.8-10.2); CHLORIDE 102 mmol/L (98-107); COSMO 281; CREATININE 1.4 mg/dL (0.5-0.9); ESTIMATED GFR 38; GLUCOSE 112 mg/dL (70-104); GOT 35 U/L (10-30); GPT 24 U/L (10-36); POTASSIUM 4.3 mmol/L (3.5-5.1); SODIUM 138 mmol/L (136-145); TCO2 26 mmol/L (25-35); TOTAL BILIRUBIN < 0.15 mg/dL (0.20-1.00)
--- NOTE | 2018-10-10 07:47 | Diag Imaging Result Doc PS360 ---
EXAM: ABDOMEN FLAT/UPRIGHT - 10/10/2018 HISTORY: sbo vs ileus TECHNIQUE: Supine and upright abdomen COMPARISON: 10/09/2018 FINDINGS: There is gaseous small bowel distention similar to prior. There is gas visible in nondistended colon and rectum. There is no discrete free air identified. There is a surgical clip at the right upper quadrant. IMPRESSION: Gaseous small bowel distention similar to prior. Electronically signed by Jorge Luis Fu 10/10/2018 7:45 AM
[2018-10-10] MEDS: PROTONIX PO SCH (08:02)
[2018-10-10] MEDS: LEVAQUIN PO SCH ×2 (16:55→17:11)
[2018-10-10] MEDS ORDERED: MIRALAX PO ONE (16:59)
--- NOTE | 2018-10-10 23:26 | PROGRESS NOTE ---
DATE: 10/10/2018 SUBJECTIVE: Patient notes her abdominal pain feels better. She is still having some mild bloating, mild tenderness, but notes she is nauseated and really has no desire to eat anything currently. PHYSICAL EXAM: VITAL SIGNS: Temperature 98.3 degrees, pulse 59, respiratory rate 18, BP 152/50. General: Patient is awake, alert. She is very pleasant. She is in no current distress. HEENT: Normocephalic. Neck: Supple. Cardiovascular: Regular rate. Chest: Clear and nonlabored. Abdomen: Soft, diffusely minimally tender. Positive bowel sounds, although greatly decreased. Abdomen otherwise soft. Extremities: Moves all extremities. Neurologic: No changes. ASSESSMENT: 1. Small-bowel ileus. Appears to be resolved. 2. Acute kidney injury. 3. Diabetes. 4. Reflux. PLAN: We will continue patient in the hospital. Recheck a KUB. Continue her home medications. Advance diet, if she tolerates. cc: Nixon Porter MD MTDD
[2018-10-11] MEDS: FLAGYL PO SCH ×4 (00:55→19:51)
[2018-10-11] MEDS: HUMULIN R (PARKWAY) SUBQ SCH ×2 (06:34→10:42)
[2018-10-11 06:46] LABS: BASO# 0.02 X1000 (0.0-0.2); BASO% 0.2 % (0.0-0.8); EOS# 0.06 X1000 (0.0-0.7); EOS% 0.5 % (0.0-10.0); HEMATOCRIT 38.9 % (37.0-47.0); HEMOGLOBIN 12.3 g/dL (12.0-16.0); IMM GRAN# 0.07 X1000 (0.0-0.04); IMM GRAN% 0.6 % (0.0-0.5); LYMPH# 4.04 X1000 (1.2-3.4); LYMPH% 32.3 % (20.5-51.1); MCH 27.7 PG (27-31); MCHC 31.6 g/dL (33-37); MCV 87.6 FL (81-99); MONO# 1.08 X1000 (0.11-0.59); MONO% 8.6 % (1.7-9.3); MPV 12.1 FL (7.4-10.4); NEUT# 7.22 X1000 (1.4-6.5); NEUT% 57.8 % (42.2-75.2); PLT 296 X1000 (130-400); RBC 4.44 XMIL (4.2-5.4); WBC 12.49 X1000 (4.8-10.8)
[2018-10-11] MEDS: PROTONIX PO SCH (06:54)
[2018-10-11 07:07] LABS: ALBUMIN 3.9 g/dL (3.5-5.0); CREATININE 1.5 mg/dL (0.5-0.9); POTASSIUM 4.3 mmol/L (3.5-5.1); TOTAL BILIRUBIN 0.2 mg/dL (0.20-1.00); TOTAL PROTEIN 6.9 g/dL (6.3-8.3)
[2018-10-11] MEDS ORDERED: LINZESS PO ONE (08:26)
[2018-10-11] MEDS ORDERED: ZOFRAN ODT PO PRN ×2 (14:19→17:32)
--- NOTE | 2018-10-11 16:17 | Diag Imaging Result Doc PS360 ---
EXAM: KUB ABDOMEN HISTORY: N/V SBO TECHNIQUE: Single view. COMPARISON: 10/10/2018 FINDINGS: There are dilated loops of small bowel up to 4.5 cm. There is a paucity of distal gas. No significant proximal colonic gas is appreciated. Findings are suspicious for mechanical small bowel obstruction. There is a surgical clip in the right upper quadrant. IMPRESSION: Dilated small bowel loops suspicious for mechanical small bowel obstruction. Electronically signed by Agnes Moy 10/11/2018 4:15 PM
[2018-10-11] MEDS ORDERED: OFIRMEV 1000 MG/ISOTONIC SOLN 1,000 MG/100 ML BOTTLE IV PRN (17:30)
[2018-10-11] MEDS ORDERED: MORPHINE IV PRN (17:30)
[2018-10-11] MEDS: LEVAQUIN PO SCH (19:51)
[2018-10-11] MEDS: ZOFRAN IV PRN (19:53)
--- NOTE | 2018-10-11 22:21 | PROGRESS NOTE ---
DATE: 10/11/2018 SUBJECTIVE: The patient thought she was feeling better. She attempted to eat. Still having nausea. Still having bloating. She has not really had any bowel movements. Still feels sick to her stomach. Feels as though her stomach is swollen. PHYSICAL: Vital signs: Temperature 98, pulse 60, respiratory rate 18, BP 152/56. General: Patient is awake. She is very pleasant, although still somewhat uncomfortable in appearance. HEENT: Normocephalic. Neck: Supple. Cardiovascular: Regular rate. Chest clear nonlabored. Abdomen: Soft, diffusely tender. Decreased bowel sounds. Mildly distended. Extremities: Moves all extremities. No edema. Neurologic: No focal neurological changes. Skin: Warm, dry. No rashes. ASSESSMENT: 1. Ileus appears resolved although she is still having increased bowel gas pattern. 2. Constipation. 3. Acute kidney injury. 4. Diabetes. 5. Chronic reflux. PLAN: We attempted Linzess and this did not help. She has been given other bowel medications. At this point, we are going to transfer her to [facility] for Gastroenterology assistance. cc: Nixon Porter MD
[2018-10-11] MEDS: HUMULIN R SUBQ SCH (23:46)
[2018-10-12] MEDS: ZOFRAN IV PRN ×4 (00:57→12:34)
[2018-10-12] MEDS: FLAGYL PO SCH ×3 (01:42→18:20)
[2018-10-12] MEDS: HUMULIN R SUBQ SCH ×4 (06:08→21:58)
[2018-10-12] MEDS ORDERED: PROTONIX PO SCH (07:00)
[2018-10-12 08:07] LABS: BASO# 0.02 X1000 (0.0-0.2); BASO% 0.1 % (0.0-0.8); EOS# 0.03 X1000 (0.0-0.7); EOS% 0.2 % (0.0-10.0); HEMATOCRIT 41.6 % (37.0-47.0); IMM GRAN# 0.06 X1000 (0.0-0.04); IMM GRAN% 0.4 % (0.0-0.5); LYMPH# 2.49 X1000 (1.2-3.4); MCH 28.7 PG (27-31); MCHC 33.7 g/dL (33-37); MCV 85.2 FL (81-99); MONO% 7.5 % (1.7-9.3); MPV 12.5 FL (7.4-10.4); NEUT# 10.93 X1000 (1.4-6.5); NEUT% 74.8 % (42.2-75.2); PLT 274 X1000 (130-400); RBC 4.88 XMIL (4.2-5.4); WBC 14.63 X1000 (4.8-10.8)
[2018-10-12] MEDS ORDERED: SODIUM CHLORIDE 0.9% INJ SCH (08:15)
[2018-10-12 08:36] LABS: ALB/GLOB RATIO 1.6; ALBUMIN 4.6 g/dL (3.5-5.0); CALCIUM 10.5 mg/dL (8.8-10.2); CREATININE 1.8 mg/dL (0.5-0.9); POTASSIUM 4.6 mmol/L (3.5-5.1); TOTAL BILIRUBIN 0.18 mg/dL (0.20-1.00); TOTAL PROTEIN 7.5 g/dL (6.3-8.3)
[2018-10-12] MEDS: NS 1,000 ML IV SCH ×2 (09:04→23:19)
[2018-10-12] MEDS: PROTONIX IV SCH (14:41)
--- NOTE | 2018-10-12 16:30 | Diag Imaging Result Doc PS360 ---
EXAM: US ABDOMEN-COMPLETE 10/12/2018 HISTORY: elevated liver enzymes TECHNIQUE: Abdominal ultrasound COMMENT: The study is suboptimal technically due to the patient's body habitus. There is antegrade flow in the portal vein. There is dilatation the common bile duct to over 10 mm. This may be physiologic following cholecystectomy however. The right kidney is slightly atrophic measuring 9.5 x 4.1 x 4.8 cm but there is no evidence of hydronephrosis. The left kidney has been resected by history. The spleen is not well demonstrated. The aorta and inferior vena cava are normal in the areas where they are visible. The pancreas is obscured. There are no gross hepatic abnormalities. IMPRESSION: Dilatation the common bile duct of uncertain significance. Electronically signed by Timo Bryant 10/12/2018 4:28 PM
--- NOTE | 2018-10-12 16:40 | Diag Imaging Result Doc PS360 ---
EXAM: SMALL BOWEL SERIES ONLY 10/12/2018 HISTORY: sbo TECHNIQUE: Small bowel series. 10 images. COMMENT: There is markedly delayed intestinal transit with markedly delayed proximal small bowel loops. The barium is diluted and flocculated in the distal bowel loops. Given the appearance on the CT of 10/07/2018 the dilatation of small bowel loops is somewhat worse than on the CT scan. There does appear to be a transition on the CT on image 110 in the mid pelvis. At six hours there is some dilute contrast demonstrated in the colon. IMPRESSION: Partial small bowel obstruction. Electronically signed by Timo Bryant 10/12/2018 4:38 PM
--- NOTE | 2018-10-12 18:09 | GENERAL SURGERY CONSULTATION ---
DATE: 10/12/2018 REASON FOR CONSULTATION: Small bowel obstruction. HISTORY OF PRESENT ILLNESS: This is a 63-year-old female who was in her usual state of health last week until after she ate some chicken salad. Within the next day or hours, she started experiencing abdominal pain in her mid upper abdomen with associated nausea. She presented to the emergency department and was admitted for possible bowel obstruction. Exacerbating factors are eating. Relieving factors are time and rest. The nausea and pain are both intermittent. She has had multiple episodes of vomiting since being admitted to the hospital. The most recent episode was last night. She did complain of subjective fever and chills 24 hours prior to being admitted. However, there has been no documented fever in the hospital. She was having daily regular soft brown bowel movements prior to admission. Once admitted, she went several days without a bowel movement, but she was passing flatus. She has been given laxatives recently and has had several loose watery stools most recently this morning. PAST MEDICAL HISTORY: Diabetes, high blood pressure, hypercholesterolemia, history of left renal cell carcinoma, gastroesophageal reflux disease, chronic back pain, chronic kidney disease. PAST SURGICAL HISTORY: Left nephrectomy May 2018, appendectomy, open cholecystectomy, partial hysterectomy, x2. ALLERGIES: Clarithromycin and penicillin. HOME MEDICATIONS: Aspirin, multivitamin, ibuprofen 800 mg p.o. t.i.d., Lipitor, lisinopril/hydrochlorothiazide, omeprazole, fenofibrate, and saxagliptin. Current medications include Levaquin, Flagyl and Protonix. FAMILY HISTORY: Her mother of a myocardial infarction in her 60s and also had diabetes. Both her parents also had unknown type of cancer. SOCIAL HISTORY: The patient quit smoking in May 2018. Prior to that, she was 1 pack per day smoker for over 40 years. She denies alcohol or illicit drug use. She is retired. REVIEW OF SYSTEMS: Ten systems reviewed and negative except as noted above also. PHYSICAL EXAMINATION: Vital Signs: Temperature 98.9 degrees, pulse 70, respirations 19, blood pressure 144/59 O2 saturation 100%. General: Well-developed female who appears weak but in no acute distress. HEENT: Normocephalic, atraumatic. Extraocular muscles intact. Pupils equal, round, reactive to light. Sclerae anicteric. Moist mucous membranes. Neck: Supple no thyromegaly. CV: Regular rate and rhythm. Respiratory: Clear bilateral breath sounds. No increased work of breathing. Gastrointestinal: Soft, nondistended diffusely and mildly tender to palpation without rebound or guarding. No organomegaly or mass. No hernias. She has a well- healed right upper quadrant incision and a mostly healed lower midline incision with a tiny open sore. No hernias appreciated. Extremities: No clubbing, cyanosis, or edema. Skin: Warm and dry. No rash. Musculoskeletal: Moves all extremities equally and well. LABORATORY: White blood cell count on admission 16,000; today, 14,000. Hemoglobin 14, hematocrit 41, platelet count 274,000. Sodium 136, potassium 4.6, chloride 95, CO2 24, BUN 36, creatinine 1.8, glucose 155, AST 70, ALT 78, alkaline phosphatase 55, total bilirubin 0.18. Imaging: Abdominal pelvis CT scan on 10/07/2018 showed several mildly distended small bowel loops with air- fluid levels. Normal appendix. Normal bladder. Mild stranding in the left renal fossa likely is postsurgical for from nephrectomy. Small adrenal nodules. The liver, spleen, and pancreas are unremarkable. Followup plain film x-rays over the last few days continued to show gas distended loops of small bowel as well as gas in the colon and rectum. ASSESSMENT AND PLAN: 63-year-old female with abdominal pain, nausea and vomiting of unclear etiology with imaging concerning for partial small bowel obstruction versus ileus. Underlying etiology could be mechanical obstruction versus food poisoning versus viral or bacterial enteritis. Currently, she is not completely obstructed and does not have an acute abdomen. We will proceed with a small-bowel follow-through and observation for now. cc: Sreekanth Galindo MD
--- NOTE | 2018-10-12 19:13 | PROGRESS NOTE ---
DATE: 10/12/2018 SUBJECTIVE: This patient today is complaining of some abdominal discomfort. She is still having bloating. No bowel movement. We have a recent abdominal x-ray from yesterday that showed dilated small bowel loops suspicious for mechanical small bowel obstruction. She was transferred from [facility] to [facility] to be evaluated by Gastroenterology Department and Surgery Department. OBJECTIVE: Vital Signs: Temperature 97.9 degrees, pulse 76, respiratory rate 16, blood pressure 147/78, oxygen saturation 98% on room air. HEENT and Neck: Head normocephalic, no trauma. PERRLA. Neck is supple. No JVD. No masses. Central trachea. Chest: Clear to auscultation. No wheezing. No rales. Abdomen: Soft, is tender to palpation at the level of the periumbilical area and lower abdomen. Decreased bowel sounds. Extremities: No edema, no clubbing, no cyanosis. Neurological: The patient is alert and oriented x3. No focal deficits. LABORATORY DATA: WBC 14.6, hemoglobin 14, hematocrit 41.6, platelets 274,000. Sodium 136, potassium 4.6, chloride 95, bicarbonate 24, BUN 36, creatinine 1.8, glucose 155, calcium 10.5, ALT 70, ALT 78, alkaline phosphatase 55. ASSESSMENT AND PLAN: 1. Ileus versus small bowel obstruction, Gastroenterology Department and Surgery Department on board. We will continue following their recommendations. Continue with IV fluids as well. 2. Acute on chronic kidney disease. It looks like this is her baseline. We will continue to monitor. We will continue with fluids. 3. Type 2 diabetes. Continue with same management for now. 4. Chronic reflux. Aware. She has been placed on Protonix. cc: Tristan aVldez MD
--- NOTE | 2018-10-12 19:51 | GASTROENTEROLOGY CONSULTATION ---
DATE: 10/12/2018 PRIMARY CARE DOCTOR: Jorge Luis Willett. REASON FOR CONSULTATION: Abdominal pain and imaging showing evidence of small-bowel obstruction. HISTORY OF PRESENT ILLNESS: Ms. Munoz is 63-year-old female who was admitted on 10/07/2028, to [facility]. The patient has a history of left-sided renal cell carcinoma. She had left nephrectomy in May 2018, by Dr. Choudhary. Postoperatively, she did well, until recently when she started having abdominal pain, nausea, and vomiting since last Tuesday. According to the patient, she ate a salad after coming from [place], then she ate the same leftover on next morning, and that made her sick. Then, she started having abdominal cramping, nausea, vomiting. This persisted and she had to be admitted to [facility]. She was treated there for the last 5 days, with no improvement. Imaging showed evidence of several mildly distended loops of small bowel containing air-fluid levels which could be considered as ileus versus partial-bowel obstruction. This was on initial CT scan, but over course of the hospital stay, her repeat imaging on abdominal x-ray showed evidence of persistent dilation of small-bowel loops with some loops dilated and extend up to 4.5 cm based on the current imaging from 10/11/2018, suggesting mechanical small-bowel obstruction. The patient was then transferred to [facility] for further workup. The patient continues to have abdominal cramping and along with some nausea. She is NPO. She had moved her bowels with laxatives. She was given 1 other Linzess as well with no relief per the record. PAST MEDICAL HISTORY: Left-sided renal cell carcinoma, in May 2018, status post left nephrectomy, Dr. Choudhary; hypertension, type 2 diabetes, hyperlipidemia, GERD, chronic back pain from arthritis and bulging disks, she takes ibuprofen 80 mg every day for that; chronic kidney disease stage III. PAST SURGICAL HISTORY: Left nephrectomy in May 2018, appendectomy, cholecystectomy, hysterectomy, and section. SOCIAL HISTORY: She quit smoking in May 2018, right after her nephrectomy. Prior to that, she was a 3-hxyi-o-day smoker since age 17. She denies history of alcohol or illicit drug abuse. 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 FAMILY HISTORY: Mother had myocardial infarction in her 60s. She also had diabetes and unknown type of cancer. Father had unknown type of cancer. ALLERGIES: Biaxin, clarithromycin, penicillin. MEDICATIONS: In the hospital include Tylenol IV q.6 hours as needed, sliding-scale regular insulin, Levaquin, Flagyl, morphine, IV normal saline at 100 mL/h, which we started today, Zofran 4 mg IV every 4 hours, Zofran 4 mg IV every 4 hours as needed, Protonix 40 mg IV once daily which I switched today, and Linzess was given 1 dose yesterday. She is currently NPO. REVIEW OF SYSTEMS: Denies any current fevers, rigors, chills, but on admission, she was complaining of feverish and chills. She denies any vomiting today, but she feels nauseous. She complains of abdominal cramping in the periumbilical region. She denies any chest pain, shortness of breath, dyspnea at rest. Denies any vomiting or passing blood in the stools. She had a bowel movement today after using laxatives. She denied noticing blood in the stools. She does have some mild arthritis. She does take NSAIDs for arthritis. She denies any other neurologic complaints. PHYSICAL EXAMINATION: Temperature is 98.9 degrees, pulse of 70, respiratory 19, blood pressure 144/59, saturating 100% on room air. Body weight of 166 pounds, 6 ounces. BMI of 31.4 kg/m2.General appearance: Moderately built, moderately nourished, lying in bed, in no acute distress. HEENT: No pallor. No icterus. Pupils equal, react to light. Neck: Supple. Abdomen: Discomfort in the periumbilical region. No guarding. No rebound. No visible distention noted. Extremities: No cyanosis, clubbing, and edema. Neurologic: She is alert, awake, oriented x3. LABORATORY AND DIAGNOSTIC DATA: Hemoglobin and hematocrit is 14 and 41.6, white count of 14.63, platelet count 274,000. Sodium of 130, potassium 4.6, chloride 95, bicarbonate 24, anion gap 17, BUN of 36, creatinine 1.8, glucose of 155, calcium is 10.5. Total bilirubin is 0.18, AST 70, ALT 78, alkaline phosphatase 55, total protein 7, albumin of 4.6. Her liver enzymes started to come up. On admission, her liver enzymes were normal. Acetone level was negative. Urinalysis on admission was 1+ protein and 2+ white cells. Repeat urine test was negative. The blood culture x2 negative at 48 hours on 10/07/2018. Abdominal x-ray done yesterday, showed dilated small-bowel loops suspicious for mechanical small- bowel obstruction. The dilated loops of small bowel up to 4.5 cm. The imaging mentioned above, CT scan done on 10/07/2018, showed: 1. Interval left nephrectomy with mild stranding in the left renal fossa that is probably postsurgical. 2. Several mildly distended loops of small bowel containing air-fluid levels. Consider ileus versus partial-bowel obstruction. 3. Postsurgical changes of the lower abdominal wall near the midline. Prior cholecystectomy noted and small adrenal nodules probably representing adenomas are stable. IMPRESSION: 1. Abdominal pain with nausea and vomiting. Persistent for the last 5 days and imaging showing possible partial-small obstruction. 2. Reflux disease. 3. History of former smoking. 4. Chronic back pain. Using nonsteroidal anti-inflammatory drugs or ibuprofen every day until admission. 5. Chronic kidney disease. 6. Status post left nephrectomy for renal cell carcinoma in June [address] Choudhary. 7. Diabetes. 8. Elevated liver enzymes. 9. Leukocytosis. RECOMMENDATIONS: 1. We will keep the patient n.p.o. for now. We will request a consult from Surgery. We have called Dr. Galindo for evaluation for small-bowel obstruction. She has had multiple abdominal surgeries and she could be having partial obstruction because of the scar tissue causing her symptoms. 2. We will keep her on Protonix once daily with some IV fluids. We will give her Levaquin and Flagyl for now. She will continue sliding-scale insulin. 3. The patient was counseled to avoid any use of NSAIDs. We will check an ultrasound of the abdomen because of new onset of elevated liver enzymes, and check hepatitis panel and other labs. We will try to avoid any hepatotoxic drugs. 4. We will follow along. The above plans were discussed with the patient and all questions answered. Please call us with any further questions. cc: MD Jorge Luis Green MD Omar J. Sosa-Chirinos, MD
[2018-10-13] MEDS: FLAGYL PO SCH ×3 (01:50→17:37)
[2018-10-13] MEDS: HUMULIN R SUBQ SCH ×4 (06:09→21:00)
--- NOTE | 2018-10-13 06:10 | GENERAL SURGERY PROGRESS NOTE ---
DATE: 10/12/2018 SUBJECTIVE: The patient continues to have some vague midabdominal pain and nausea, but no vomiting today. She has had several bowel movements, but not much flatus. OBJECTIVE: She is afebrile. Vital signs are stable.General: She is awake, alert, oriented x3. No acute distress. GI: Soft, mildly distended and mildly tender diffusely. No rebound or guarding. IMAGING: Her small bowel follow-through series somewhat surprisingly shows continued marked delayed proximal small bowel loops which appear worse than her CT scan and there was a very small amount of contrast seen in the colon after 6 hours. ASSESSMENT AND PLAN: A 63-year-old female with persistent partial small bowel obstruction. Unfortunately, I think she may end up needing an exploration as she does not seem to be making much progress over the last 6 days. We will recheck her abdominal exam and x-ray in the morning. If she is not significantly improved, then I would plan exploratory laparotomy. I have discussed the risks and benefits with her including bleeding, infection, injury to the bowel, incisional hernia, and other imponderables. She understands and agrees if necessary. cc: Sreekanth Galindo MD
[2018-10-13 07:01] LABS: HEPATITIS PROFILE ACUTE SEE COMMENTS
--- NOTE | 2018-10-13 07:42 | Diag Imaging Result Doc PS360 ---
EXAM: FLAT/UPRIGHT ABD/1 VIEW CHEST INDICATION: sbo TECHNIQUE: 3 views COMPARISON: 10/12/2018 FINDINGS: There is a large amount of retained barium in small bowel and in the colon related to a recent small bowel follow-through performed yesterday. Most of the barium is in the small bowel and the ascending and transverse colon. There is a trace small amount of barium in the rectum. The small bowel distention seen previously does appear to be somewhat improved. There is no evidence of large volume free abdominal gas. The lungs are grossly clear. There is no discrete pleural fluid collection or pneumothorax. The cardiomediastinal silhouette and central vasculature are grossly unremarkable. IMPRESSION: Large amount of barium that remains in the small bowel and colon from yesterday's small bowel follow-through study. However, the small bowel distention appears to be less prominent. Electronically signed by Gerson Welsh 10/13/2018 7:40 AM
[2018-10-13 07:59] LABS: BASO# 0.03 X1000 (0.0-0.2); BASO% 0.2 % (0.0-0.8); EOS# 0.07 X1000 (0.0-0.7); EOS% 0.5 % (0.0-10.0); HEMATOCRIT 37.7 % (37.0-47.0); HEMOGLOBIN 12.4 g/dL (12.0-16.0); IMM GRAN# 0.04 X1000 (0.0-0.04); IMM GRAN% 0.3 % (0.0-0.5); LYMPH# 4.44 X1000 (1.2-3.4); LYMPH% 34.6 % (20.5-51.1); MCH 28.8 PG (27-31); MCHC 32.9 g/dL (33-37); MCV 87.7 FL (81-99); MONO# 0.94 X1000 (0.11-0.59); MONO% 7.3 % (1.7-9.3); MPV 11.2 FL (7.4-10.4); NEUT# 7.32 X1000 (1.4-6.5); NEUT% 57.1 % (42.2-75.2); PLT 303 X1000 (130-400); RDW 15.1 % (11.5-14.5); WBC 12.84 X1000 (4.8-10.8)
[2018-10-13 08:34] LABS: ALB/GLOB RATIO 1.3; ALBUMIN 3.6 g/dL (3.5-5.0); CREATININE 1.7 mg/dL (0.5-0.9); POTASSIUM 3.9 mmol/L (3.5-5.1); TOTAL BILIRUBIN 0.21 mg/dL (0.20-1.00); TOTAL PROTEIN 6.3 g/dL (6.3-8.3)
[2018-10-13] MEDS: NS 1,000 ML IV SCH ×2 (10:53→16:05)
[2018-10-13] MEDS: PROTONIX IV SCH (11:13)
--- NOTE | 2018-10-13 12:22 | PROGRESS NOTE ---
DATE: 10/13/2018 SUBJECTIVE: This patient feels a little bit better today. She is not complaining of abdominal pain. Apparently, she has been passing gas and having some liquid bowel movements, small. X-ray of the abdomen today showed a large amount of barium that remains in the small bowel and colon from yesterday's small bowel follow-through study. However, the small-bowel distention appears to be less prominent. This patient has been followed by Surgery Department. I will wait for recommendations. In the meantime I will continue with same management. OBJECTIVE: Vital Signs: Temperature 98.3 degrees, pulse 61, respiratory rate 18, blood pressure 134/52, oxygen saturation 100% on room air. HEENT: Head normocephalic. No trauma. PERRLA. Neck: Supple. No JVD. No masses. Central trachea. Chest: Clear to auscultation. No wheezing. No rales. Abdomen: Soft, nontender, does not look distended. Decreased bowel sounds. Extremities: No edema. No clubbing. No cyanosis. Neurological: The patient is alert. She is oriented x3. No focal deficits. LABORATORY: WBC 12.8, hemoglobin 12.4, hematocrit 37.7, platelets 303,000. Sodium 141, potassium 3.9, chloride 110, bicarbonate 20, BUN 35, creatinine 1.7, glucose 109, calcium 9, AST 53, ALT 61, alkaline phosphatase 36. ASSESSMENT AND PLAN: 1. Ileus versus small bowel obstruction. Gastroenterology Department and Surgery Department on board. Abdominal x-ray showed less bowel distention compared with yesterday. I will continue with IV fluids. I will follow the recommendations of Surgery Department. 2. Acute on chronic kidney disease. It looks like this is her baseline. Will continue to monitor. Will continue with fluids. 3. Type 2 diabetes. Continue with same management for now. 4. Chronic reflux. She has been placed on Protonix. 5. Mild elevation of the liver function tests, for now will monitor. GI on board. 6. She seems to be doing a bit better. She is not complaining of pain right now. Her abdomen is not distended. Surgery Department will evaluate the possibility of doing an exploratory laparotomy on this patient. cc: Tristan Valdez MD
[2018-10-13] MEDS: LEVAQUIN PO SCH ×2 (16:06→17:37)
--- NOTE | 2018-10-13 19:04 | GENERAL SURGERY PROGRESS NOTE ---
DATE: 10/13/2018 SUBJECTIVE: The patient is feeling better this morning. She slept well last night with no significant pain. No nausea or vomiting. She continues to have loose bowel movements. OBJECTIVE: She is afebrile. Vital signs are stable.General: She is awake, alert, oriented x3. No acute distress. Gastrointestinal: Soft, nondistended, minimally tender. She does have bowel sounds. LABORATORY: CBC shows improved white blood cell count 12.8. BUN and creatinine are slightly down to 35 and 1.7 respectively. IMAGING: Her abdominal x-ray this morning shows decreased distention of the small bowel and more barium into the colon and now some in the rectum. ASSESSMENT AND PLAN: A 63-year-old female with partial small bowel obstruction. She is improved. We are going to try her on a clear liquid diet and advance as tolerated. If she worsens then we will once again plan exploratory laparotomy. cc: Sreekanth Galindo MD
--- NOTE | 2018-10-13 23:41 | PROVIDER PROGRESS NOTE ---
Progress Note S: No acute overnight events. Patient has had multiple loose stools since yesterday with significant decrease in abdominal distension. No N/V/F, abdominal pain. She is tolerating liquids. O: Last Vital Signs Temp 98.5 F 10/13/18 20:00 Pulse 57 L 10/13/18 20:00 Resp 18 10/13/18 15:23 BP 120/47 10/13/18 20:00 Pulse Ox 96 10/13/18 20:00 Height 5 ft 1 in Weight 166 lb 6 oz GEN: awake, alert, NAD HEENT: anicteric, MMM NECK: supple, no jvd PULM: CTAB, no wheezing ABD: soft NT/ND, BS present EXT: no cce NEURO: nonfocal LABS: 10/13/18 10/13/18 07:43 07:43 WBC 12.84 H Hgb 12.4 Plt Count 303 Sodium 141 Potassium 3.9 D Chloride 110 H D Carbon Dioxide 20 L BUN 35 H Creatinine 1.7 H Glucose 109 H Total Bilirubin 0.21 AST 53 H ALT 61 H Alkaline Phosphatase 45 Total Protein 6.3 Albumin 3.6 EXAM: US ABDOMEN-COMPLETE 10/12/2018 HISTORY: elevated liver enzymes TECHNIQUE: Abdominal ultrasound COMMENT: The study is suboptimal technically due to the patient's body habitus. There is antegrade flow in the portal vein. There is dilatation the common bile duct to over 10 mm. This may be physiologic following cholecystectomy however. The right kidney is slightly atrophic measuring 9.5 x 4.1 x 4.8 cm but there is no evidence of hydronephrosis. The left kidney has been resected by history. The spleen is not well demonstrated. The aorta and inferior vena cava are normal in the areas where they are visible. The pancreas is obscured. There are no gross hep atic abnormalities. IMPRESSION: Dilatation the common bile duct of uncertain significance. EXAM: FLAT/UPRIGHT ABD/1 VIEW CHEST 10/13/2018 Large amount of barium that remains in the small bowel and colon from yesterday's small bowel follow-through study. However, the small bowel distention appears to be less prominent. A/P: Ms. Patricia Munoz is a 63 year old woman with GERD, chronic back pain, CKD, h/o left nephrectomy who presented with N/V in the setting of pSBO. She had improved significantly with bowel regimen and supportive care. Etiology of obstruction is likely from adhesions. She has leukocytosis. Abnormal LFTs. Hepatitis panel negative and US shows dilated CBD likely in setting of prior CCY. LFTs stable; normal bili and ALP. # pSBO: improving; advance diet per surgery; continue bowel regimen; on empiric abx with levaquin and flagyl # Abnormal LFTs: stable; abdomen benign; avoid hepatotoxic drugs; no evidence of stones on US; trend LFTs daily # GERD: continue PPI Will sign off. Please call with questions. Follow-up in GI clinic in 2-4 weeks to recheck LFTs.
[2018-10-14] MEDS: NS 1,000 ML IV SCH ×3 (01:04→18:24)
[2018-10-14] MEDS: FLAGYL PO SCH ×3 (02:57→18:25)
[2018-10-14] MEDS: HUMULIN R SUBQ SCH ×3 (06:21→17:01)
[2018-10-14 07:45] LABS: CALCIUM 8.7 mg/dL (8.8-10.2); CREATININE 1.3 mg/dL (0.5-0.9)
--- NOTE | 2018-10-14 14:10 | PROGRESS NOTE ---
DATE: 10/14/2018 SUBJECTIVE: This patient is feeling better. Her abdomen is not distended. She not having pain. She has been passing gas and having some liquid bowel movements, her diet has been advanced by Surgery Department and let us see how she does. OBJECTIVE: Vital Signs: Temperature 98.3 degrees, pulse 56, respiratory rate 16, blood pressure 143/49 oxygen saturation 98 on room air. HEENT: Head normocephalic. No trauma. PERRLA. Neck: Supple. No JVD. No masses. Central trachea. Chest: Clear to auscultation. No wheezing. No rales. Abdomen: Soft, nontender, nondistended. Positive bowel sounds. Extremities: No edema, no clubbing, no cyanosis. Neurological: The patient is alert, she is oriented x3. No focal deficits. LABORATORY DATA: Sodium 143, potassium 4, chloride 111, bicarbonate 20, BUN 26, creatinine 1.3 glucose 100 calcium 8.7. ASSESSMENT AND PLAN: 1. Ileus versus small-bowel obstruction, Gastroenterology Department and Surgery Department following this . She seems to be doing much better. Diet has been advanced today to a GI soft diet, let us see how she does. We will monitor. 2. Acute on chronic kidney disease, it looks like this is her baseline. Stable. Continue with gentle IV fluids. 3. Type 2 diabetes continue with same management for now. 4. Chronic reflux, she has been placed on Protonix. 5. Mild elevated mild elevation of the liver function tests, will monitor for now. GI on board. cc: Tristan Valdez MD
--- NOTE | 2018-10-14 14:58 | PROGRESS NOTE ---
DATE: 10/14/2018 SUBJECTIVE: Dr. Galindo has seen Ms. Munoz because of a partial small bowel obstruction which appears to be resolved. Her abdomen is soft. She has no tenderness. She is tolerating a GI soft diet and is having bowel activity. Her electrolytes are within normal limits. BUN and creatinine are 26 and 1.3. Heart rate is 55, blood pressure 140/52, O2 saturation 100%. She is afebrile. PLAN: We will sign off her care. If we are needed, please let us know. cc: Mahnaz Sheffield MD
[2018-10-14] MEDS: LEVAQUIN PO SCH (18:25)
[2018-10-15] MEDS: HUMULIN R SUBQ SCH ×2 (01:49→07:09)
[2018-10-15] MEDS: FLAGYL PO SCH ×2 (02:48→10:20)
[2018-10-15] MEDS: NS 1,000 ML IV SCH (06:29)
[2018-10-15] MEDS ORDERED: PROTONIX PO SCH (07:00)
[2018-10-15 07:31] LABS: CALCIUM 9.1 mg/dL (8.8-10.2); CREATININE 1.4 mg/dL (0.5-0.9)
[2018-10-15 07:57] VITALS: BP 155/55
--- NOTE | 2018-10-15 16:24 | DISCHARGE SUMMARY ---
ADMISSION DATE: 10/07/2018 DISCHARGE DATE: 10/15/2018 DIAGNOSES: 1. Ileus versus small-bowel obstruction, resolved. 2. Acute on chronic kidney disease, resolved. 3. Diabetes mellitus type 2. 4. Chronic reflux. 5. Mild elevation of liver function tests. 6. Leukocytosis, resolved. 7. Renal cell carcinoma, May 2018, status post left nephrectomy. CONSULTS: Dr. Sreekanth Galindo, general surgery. Dr. Brent Cueva, gastroenterology. DIAGNOSTICS: 1. 10/07/2018, CT of the abdomen and pelvis revealed interval left nephrectomy with mild stranding in the left renal fossa that is probably postsurgical. Several mildly distended loops of bowel containing air-fluid levels. Consider ileus versus small-bowel obstruction. 2. Chest x-ray. No evidence of acute pathology. 3. 10/08/2018 abdominal x-ray. A few mildly distended loops of small bowel. 4. 10/09/2018 abdominal x-ray. Stable to marginal worsening of mild gaseous distention of bowel. 5. 10/10/2018 abdominal x-ray. Gaseous small distention similar to prior. 6. 10/11/2018 abdominal x-ray. Dilated small loops suspicious for mechanical bowel obstruction. 7. 10/12/2018 small-bowel series. Partial small bowel obstruction. 8. 10/12/2018 abdominal ultrasound. Dilatation of the common bile duct. 9. 10/13/2018 abdominal x-ray. A large amount of barium that remains in the small bowel and colon from yesterday's small-bowel follow-through. However, the small bowel distention appears to be less prominent. MICROBIOLOGY: Blood cultures x2 revealed no growth after 5 days. HOSPITAL COURSE: Ms. Munoz presented to the emergency room complaining of abdominal pain, nausea, and vomiting. She was found to have an ileus versus small-bowel obstruction. She was initially n.p.o. Gastroenterology and General Surgery evaluated the patient. Thankfully, this improved. We were able to start clear liquids on the , and she was advanced to a GI soft by the of which she is eating 75 to 100% of the last 3 meals with no problems, and thankfully she is ready for discharge. Creatinine was initially 2.3, but this has improved to her baseline of 1.3 to 1.6. She was given Protonix for her reflux. Gastroenterology monitored with her elevated liver function tests. As abdomen was benign, they recommended that she avoid hepatotoxic drugs and follow up with them in 2 to 4 weeks after discharge. At that time they will recheck LFTs. DISCHARGE VITAL SIGNS: Blood pressure is 155/55, heart rate 53, respirations 18, temperature 98.6 degrees oral. Room air saturations 100%. DISCHARGE PHYSICAL EXAMINATION: Cardiovascular: Regular rate and rhythm. S1 and S2 appreciated. She has no lower extremity edema. Calves are nontender bilateral with peripheral pulses palpable x4 extremities. Pulmonary: Breath sounds are clear. No increased work of breathing noted. Chest rises and falls, symmetric respiration. Chest wall is nontender to palpation. Gastrointestinal: Abdomen is soft, nontender, nondistended with bowel sounds in all 4 quadrants. Neurologic: She is alert and oriented x3. DISCHARGE MEDICATIONS: 1. Onglyza 5 mg p.o. daily. 2. Omeprazole 40 mg p.o. daily. 3. Multivitamin 1 p.o. daily. 4. Lisinopril/hydrochlorothiazide 20/25 one p.o. daily. 5. Tricor 145 mg p.o. daily. 6. Lipitor 80 mg p.o. daily. 7. Aspirin 81 mg p.o. daily. FOLLOWUP: 1. Dr. Jorge Luis Willett, her primary care provider, in the next [address] Cueva, gastroenterology, in the next 2 to 4 weeks. She has been instructed to call to be seen sooner or return to the emergency room for any syncope, dizziness, chest pain, palpitations, shortness of breath, cough, temperature greater than 101, any chills, any nausea, vomiting, diarrhea, constipation, black or bloody vomitus or stools, any yellow skin color or eye color, or for any questions or concerns that she may have. She is being discharged home in stable condition with family members. TIME SPENT: This is a greater than 30 minute discharge. Dictated by DAVIN Ortez for Tristan Valdez MD cc: DAVIN Ortez MD
== END 2018-10-15 11:32 | disposition home or self-care (01) | DRG 389 ==
LOC: P.ED 09:57 → SUATTDRO 15:54 → P.MEDSURG 15:54 → 1N 10-11 17:18
PROVIDERS: ATTEND Internal Medicine